=== PATIENT | male | born 1975 | race Caucasian/White ===

== ENCOUNTER → 2018-11-12 | Outpatient (CLI) | payer OTHER ==
--- NOTE | 2018-11-12 17:49 | KCIC ---
MRI of the thoracic spine without contrast November 12, 2018 CLINICAL HISTORY: Mid back pain which radiates to the left side. TECHNIQUE: Unenhanced T1-weighted, T2-weighted and inversion recovery sagittal and T1-weighted and T2-weighted axial images of the thoracic spine were obtained. FINDINGS: Very mild S-shaped curvature of the thoracolumbar spine is seen. Degenerative signal changes are seen involving all of the disks of the thoracic spine. Degenerative signal changes are seen within the marrow surrounding these discs. No area of abnormal signal intensity is seen involving the thoracic spinal cord. Degenerative changes are seen involving the thoracic disc spaces consisting of minimal to mild generalized disc bulges and degenerative changes involving the facet joints. Right paracentral focal disc protrusions are seen at the T3-4, T4-5, and T5-6 levels. These measure 3 mm in AP diameter. They results in mild right lateral central spinal canal stenosis without evidence of cord impingement. At the T6-7 disc space a left paracentral focal disc herniation is seen which measures 6 mm in AP diameter. This results in moderate to severe left lateral central spinal canal stenosis without evidence of cord impingement. A left paracentral focal disc protrusion is seen at T7-8 which measures 4 mm in AP diameter. This results in mild left lateral central spinal canal stenosis. A left paracentral focal disc protrusion is seen at T9-T10. This measures 5 mm in AP diameter. This results in mild to moderate left lateral central spinal canal stenosis. No neural foraminal stenosis is seen. IMPRESSION: Degenerative changes are seen throughout the thoracic spine. These findings result in mild right lateral central spinal canal stenosis at T3-4, T4-5 and T5-6. Moderate to severe left lateral central spinal canal stenosis is seen at T6-7. Mild left lateral central spinal canal stenosis is seen at T7-8. Mild to moderate left lateral central spinal canal stenosis is seen at T9-T10. There is no evidence of cord impingement. No neural foraminal stenosis is seen. Electronically signed by: Jamison Medrano MD (11/12/2018 5:46 PM) [facility]
== END | disposition home or self-care (01) ==
LOC: KCIC MRI 13:18
PROVIDERS: ATTEND Physical Medicine & Rehabilitation
DX: M47.24 Other spondylosis with radiculopathy, thoracic region (principal); M48.04 Spinal stenosis, thoracic region; M51.24 Other intervertebral disc displacement, thoracic region
CPT/HCPCS: 72146

== ENCOUNTER → 2018-12-14 | Outpatient (CLI) | payer OTHER ==
[~2018-12-14] MED LIST: HYDR-2765 PO
--- NOTE | 2018-12-15 05:07 | PAIN ---
DATE OF SERVICE: 12/14/2018 INITIAL CONSULTATION FOR PAIN CLINIC CHIEF COMPLAINT: Mid back pain and radiation to the left mid upper back and left flank. HISTORY OF PRESENT ILLNESS: The patient is a 43-year-old male who presents with history of pain for about 3 years, increasing in the mid back, upper back radiating to the left side, left lateral flank and into the lateral aspect of the rib cage and into the anterior aspect of the rib cage as well just below the pectoral region on the left side. The patient reports some on the right side as well, but mostly on the left is getting worse over the past 6 months or so. The patient has had physical therapy as well as doing chiropractic treatment currently and doing exercises as well with improvement in pain with only mildly so. The patient is seeing his PMR physician who is recommending further treatment and consideration of interventional modalities as well as the physical therapy currently. The patient reports the pain is worse with walking, standing, change in positions, awakens him from sleep 2-3 times at night, does not affect his bowel or bladder control, but can affect his ability to walk. The patient reports he is taking hydrocodone as well as muscle relaxants. Hydrocodone does decrease the pain, but only temporarily. The muscle relaxant is not helping decrease the pain at all. The patient reports no loss of motor function. The mostly left-sided pain as a tingling described as sharp, stabbing, throbbing, tingling, numbness, changes during the day, worse with activity, worse with rotational motion of the lower thoracic spine as well as lifting or bending forward. The patient reports it is burning and aching. The patient reports his disability rating from 0-10, 10 being the worst, is an 8 with family and home responsibilities, recreation, social activity, sexual behavior and self-care, 10 with occupational activities and 10 with life support activities. PAST MEDICAL HISTORY: Significant for type 2 diabetes, shortness of breath, difficulty urinating, arthritis. No previous surgeries. Cigarette smoking, 1 pack a day for 27 years. CURRENT MEDICATIONS: Include hydrocodone. ALLERGIES: The patient has no known drug allergies. FAMILY HISTORY: Significant for no major medical conditions or diseases that he is aware of. SOCIAL HISTORY: The patient smokes 1 pack a day, has it for the past 27 years. Drinks alcohol 3-4 drinks a week. Does not use any illegal, illicit or recreational drugs. 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 REVIEW OF SYSTEMS: The patient's review of systems is positive for those items mentioned in history of present illness. All systems reviewed and otherwise negative. It is complete, full and well documented on the patient's chart. PHYSICAL EXAMINATION: VITAL SIGNS: The patient's blood pressure is 147/71, pulse is 80, respirations 18, temperature is 98.5 degrees Fahrenheit. Height is 6 feet 2 inches, weight is 226 pounds. GENERAL: The patient is awake, alert, oriented, appropriate, very pleasant demeanor. HEENT: Head is normocephalic, atraumatic. Extraocular movements are intact and symmetrical. Oral cavity, mucous membranes moist and pink. Dentition is intact. NECK: Shows anterior throat supple without palpable lymphadenopathy noted. Swallow reflex symmetrical. CHEST: Shows normal on inspection. Breath sounds clear to auscultation bilaterally. HEART: Shows S1, S2 clear. No murmurs auscultated. ABDOMEN: Soft, nontender, nondistended. No palpable organomegaly is noted. No rebound or guarding demonstrated. BACK: Shows spine grossly in the midline. Normal appearing thoracic kyphosis and lumbar lordotic curvature as well as cervical lordotic curvature. Thoracic paraspinous muscle shows symmetrical on inspection with palpation shows some moderate tenderness diffusely in the middle and upper aspect of the thoracic spine, more tender on the left side than the right in the paraspinous musculature directly and actually some firm rope-like musculature on the left side, not the right. In the mid thoracic distribution, the patient has full rotational motion of the thoracic spine, both laterally as well as extension and flexion without significant increase in pain. EXTREMITIES: The patient's upper extremities showed deep tendon reflexes 2+ in the biceps, triceps tendons. Motor exam is strong with metal work duct installer strength rated at 5/5 as is bicep and tricep flexion and equal. Peripheral pulses are 2+ radial distribution. No peripheral edema is noted bilaterally. SKIN: Shows warm and dry, good turgor. No edema. No sores, rashes or bruising. IMPRESSION: 1. This is a 43-year-old male who presents with history of about 3 years pain, mid upper back radiating to the left lateral flank in a radicular fashion consistent with a thoracic radiculopathy. 2. MRI scan thoracic spine showing herniated disk at T6-7 with a left paracentral focal disk protrusion and herniation also focal disk protrusion at T7-8 resulting in mild left lateral central spinal canal stenosis as well. 3. Cigarette smoking. PLAN: Options were discussed with the patient including conservative medical managements, physical therapies and interventional techniques. He would like to pursue interventional techniques as he is already doing physical therapy and already doing exercises on his own and chiropractic treatment. We discussed a thoracic epidural steroid injection using description as well as anatomical models to describe the procedure. The patient will wait for preauthorization with his insurance provider and return for a thoracic epidural steroid injection at the T6-7 level for T6-7 left-sided radicular pain. The patient will continue with stretching and strengthening exercises. Also, try Medrol Dosepak. The patient was given instruction as well as side effects to be aware of with the medication. We will follow up in approximately 1 week. We will plan on thoracic epidural steroid injection at that time. MICHOACANO IBARRA MD DR: GAGE/steve JOB#: [id number] / [id number]
== END | disposition home or self-care (01) ==
LOC: PNCL 09:54
PROVIDERS: ATTEND Anesthesiology
DX: M54.5 Low back pain (principal); M40.294 Other kyphosis, thoracic region; M40.46 Postural lordosis, lumbar region; E11.9 Type 2 diabetes mellitus without complications; M19.90 Unspecified osteoarthritis, unspecified site; F17.210 Nicotine dependence, cigarettes, uncomplicated; Z79.891 Long term (current) use of opiate analgesic; Z72.89 Other problems related to lifestyle
CPT/HCPCS: G0463

== ENCOUNTER → 2018-12-28 | Outpatient (CLI) | payer OTHER ==
[~2018-12-28] MED LIST changes: +IOHEXOL 180 MG/ML 10 ML VIAL. ONE; +methylPREDNISolone ACETATE 40 MG/ML VIAL. ONE; +methylPREDNISolone ACETATE 80 MG/ML VIAL. ONE
--- NOTE | 2018-12-28 08:23 | PAIN ---
DATE OF SERVICE: 12/28/2018 PROGRESS NOTE FOR PAIN CLINIC DIAGNOSES: Thoracic radiculopathy with thoracic degenerative disk disease, thoracic herniated disk. HISTORY OF PRESENT ILLNESS: The patient is a 43-year-old male who returns for followup status post initial evaluation and preauthorization for thoracic epidural steroid injection the patient has obtained and now would like to proceed, still pain in the mid upper back with radiation to the left side greater than right, unchanged since previous. The patient reports the pain is a 9 on a scale of 10 at its worst over the past week, 6 on average, 2 at its least and is a 6 today. The patient reports it is aching, sharp, tight, shooting, cramping, stabbing, tingling, burning, on and off in intensity, worse with activity. The patient reports better at night, but does awaken him from sleep about every 5-6 hours. The patient reports no new motor or sensory deficits, no new bowel or bladder incontinence or other complaints. PHYSICAL EXAMINATION: VITAL SIGNS: The patient's blood pressure 137/85, pulse 67, respirations 18, temperature 98.1 degrees Fahrenheit, height is 6 feet 2 inches, weight is 225 pounds. GENERAL: The patient is awake, alert, oriented, appropriate, very pleasant demeanor. HEENT: Shows normocephalic, atraumatic. Extraocular movements are intact and symmetrical. Oral cavity: Mucous membranes moist and pink. Dentition is intact. NECK: Shows anterior throat supple without palpable lymphadenopathy noted. Swallow reflex symmetrical. CHEST: Shows normal on inspection. Breath sounds are clear to auscultation bilaterally. HEART: Shows S1, S2 clear. No murmurs auscultated. ABDOMEN: Soft, nontender, nondistended. No palpable organomegaly is noted. No rebound or guarding demonstrated. BACK: Shows spine grossly in the midline. Normal-appearing thoracic kyphosis and lumbar lordotic curvature. Thoracic paraspinous muscle shows symmetrical on inspection, with palpation shows some moderate tenderness diffusely in the mid upper distribution of paraspinous muscles, but reasonably symmetrical without atrophy, hypertrophy without radiation. The patient has good rotation motion of the thoracic spine, both extension, flexion, lateral rotation, right and left. The patient's upper extremities show deep tendon reflexes 2+ in the biceps, triceps tendons. Motor exam is strong with 5/5 teachers' assistant strength, bicep and tricep flexion. Peripheral pulses are 2+ radial distribution. No peripheral edema is noted bilaterally. Options were discussed with the patient. The patient's old chart was reviewed as his current medication regimen updated. Current review of systems updated today as well. We will proceed with a thoracic epidural steroid injection today with fluoroscopic guidance. Risks were again discussed including, but not limited to bleeding, infection, possibility of epidural hematoma, subsequent neurological compromise, dural puncture, headaches, spinal cord and/or nerve damage, side effects of steroid medication and poor results regarding pain control. The patient understands and wished to proceed. The patient will return to clinic in approximately 2 weeks for followup. She was counseled as to return appointment, activity level and side effects to be aware of. DIAGNOSES: Thoracic radiculopathy with thoracic degenerative disk disease, thoracic herniated disk. PROCEDURE: Thoracic epidural steroid injection, translaminar approach T7-8 level using C-arm fluoroscopic guidance under sterile prep and drape using local anesthetic. MEDICATION INJECTED: A total of 120 mg Depo-Medrol plus 10 mL of preservative-free normal saline and 2 mL of contrast. CONDITION AT DISCHARGE: Stable. The patient tolerated procedure well, had no complications. MICHOACANO IBARRA MD DR: GAGE/steve JOB#: [id number] / [id number]
== END ==
LOC: PNCL 07:20
PROVIDERS: ATTEND Anesthesiology
DX: M51.14 Intervertebral disc disorders with radiculopathy, thoracic region (principal)
CPT/HCPCS: 62321; J1030; J1040; Q9965

== ENCOUNTER → 2019-01-11 | Outpatient (CLI) | payer OTHER ==
[~2019-01-11] MED LIST changes: -IOHEXOL 180 MG/ML 10 ML VIAL. ONE; -methylPREDNISolone ACETATE 40 MG/ML VIAL. ONE; -methylPREDNISolone ACETATE 80 MG/ML VIAL. ONE
--- NOTE | 2019-01-11 08:39 | PAIN ---
DATE OF SERVICE: 01/11/2019 PROGRESS NOTE FOR PAIN CLINIC DIAGNOSES: Thoracic radiculopathy with thoracic degenerative disk disease, thoracic herniated disk. HISTORY OF PRESENT ILLNESS: The patient is a 43-year-old male who returns for followup status post thoracic epidural steroid injection x 1. The patient reports about 50% better after the injection and he is still holding on with some decreased pain. The patient reports an increase in his activity with greater ease and comfort, sleeping better at night, walking greater distances. The pain is beginning to return now he feels in the mid back, more on the left side, but slightly on the right as well, more on the left traveling laterally into the lateral thorax and into the anterior aspect of the rib cage as well with increased activity. The patient reports the pain is a 9 on a scale of 10 at its worst over the past week, 7 on average, 4 at its least and is a 7 today. The patient reports it is aching, sharp, tight, shooting, tingling, burning, cramping and stabbing at times, on and off in intensity, worse with exertion, worse with reaching with his left arm or weightbearing on with left upper extremity. The patient reports it awakens him from sleep about every 7-8 hours intermittently, but not every night. The patient reports it is better with applying heat. He is still doing stretching and doing strengthening exercises and physical therapy is completed and keeping heat application during the stretching as well. The patient reports no new motor or sensory deficits or other complaints. PHYSICAL EXAMINATION: VITAL SIGNS: The patient's blood pressure 121/76, pulse 69, respirations 16, temperature 98.3 degrees Fahrenheit, weight is 220 pounds. GENERAL: The patient is awake, alert, oriented, appropriate, very pleasant demeanor. HEENT: Shows normocephalic, atraumatic. Extraocular movements are intact and symmetrical. Oral cavity: Mucous membranes moist and pink. Dentition is intact. NECK: Shows anterior throat supple without palpable lymphadenopathy noted. Swallow reflex symmetrical. CHEST: Shows normal on inspection. Breath sounds are clear bilaterally. HEART: Shows S1, S2 clear. No murmurs auscultated. ABDOMEN: Soft, nontender, nondistended. No palpable organomegaly is noted. No rebound or guarding demonstrated. BACK: Shows spine grossly in the midline, slight exaggerated thoracic kyphosis, normal lumbar paraspinous musculature, thoracic paraspinous musculature shows symmetrical on inspection, with palpation shows some moderate tenderness in left of midline in the mid upper distribution of the thoracic paraspinous muscles, which is moderately tender, but without specific trigger points and without radiation, mildly tender on the right side in the same distribution. The patient has good rotational motion of the thoracic spine, both laterally as well as extension and flexion without increase in pain. EXTREMITIES: The patient's upper extremities show deep tendon reflexes 2+ in the biceps and triceps tendons. Motor exam is strong with 5/5 passenger booking clerk strength, bicep and triceps flexion. Peripheral pulses are 2+ radial distribution. No peripheral edema is noted bilaterally. Options were discussed with the patient. The patient's old chart was reviewed as his current medication regimen updated. Current review of systems updated today as well. We will preauthorize the patient for a second thoracic epidural steroid injection, he still has a T7-T8 radiculopathy on the left, better after the first injection, but still significant. The patient will continue with stretching and strengthening exercises, heat application as well to the mid upper back and return for a T7-T8 level of thoracic epidural steroid injection after insurance approval. MICHOACANO IBARRA MD DR: GAGE/steve JOB#: [id number] / [id number]
== END | disposition home or self-care (01) ==
LOC: PNCL 07:53
PROVIDERS: ATTEND Anesthesiology
DX: M51.14 Intervertebral disc disorders with radiculopathy, thoracic region (principal)
CPT/HCPCS: G0463

== ENCOUNTER → 2019-01-25 | Outpatient (CLI) | payer OTHER ==
[~2019-01-25] MED LIST changes: +IOHEXOL 180 MG/ML 10 ML VIAL. ONE; +methylPREDNISolone ACETATE 40 MG/ML VIAL. ONE; +methylPREDNISolone ACETATE 80 MG/ML VIAL. ONE
--- NOTE | 2019-01-25 09:58 | PAIN ---
DATE OF SERVICE: 01/25/2019 PROGRESS NOTE FOR PAIN CLINIC DIAGNOSES: Thoracic radiculopathy with thoracic degenerative disk disease, thoracic herniated disk. HISTORY OF PRESENT ILLNESS: The patient is a 43-year-old male who returns for followup status post thoracic epidural steroid injection x 1. The patient reports about 50% improvement after the injection, but the pain is returning now. He has recently returned from a trip to [place]. He was doing lot of walking, this has got some of the pain increased as well in his mid back as well as in his low back. The patient reports his pain is a 10 on a scale of 10 at its worst over the past week, 8 on average, 7 at its least and is a 7 today. The patient reports it is aching, sharp, dull, tight, shooting, stabbing, cramping, burning, tingling, radiating, severe, constant, unbearable at times in the mid upper back, more to the left side. The patient reports no new motor or sensory deficits. No new bowel or bladder incontinence. PHYSICAL EXAMINATION: VITAL SIGNS: The patient's blood pressure 124/85, pulse 70, respirations 16, temperature 98.0 degrees Fahrenheit, height is 6 feet 2 inches, weight is 215 pounds. GENERAL: The patient is awake, alert, oriented, appropriate, very pleasant demeanor. HEENT: Shows normocephalic, atraumatic. Extraocular movements are intact and symmetrical. Oral cavity: Mucous membranes moist and pink. Dentition is intact. NECK: Shows anterior throat supple without palpable lymphadenopathy noted. Swallow reflex symmetrical. CHEST: Shows normal on inspection. Breath sounds clear to auscultation bilaterally. HEART: Shows S1, S2 clear. No murmurs auscultated. ABDOMEN: Soft, nontender, nondistended. BACK: Shows spine grossly in the midline, normal-appearing cervical lordotic curvature, thoracic kyphotic curvature and lumbar lordotic curvature. Thoracic paraspinous muscle shows symmetrical, but with some minor hypertrophy on the left mid thoracic paraspinous musculature compared to the right. No tenderness over the spinous processes. The patient has good rotational motion of the thoracic spine, both laterally as well as extension and flexion without significant difficulty. EXTREMITIES: The patient's upper extremities show deep tendon reflexes 2+ in the patellar, 1+ tendo-calcaneus tendons. Motor exam is strong with 5/5 pipeline engineer strength, bicep and tricep flexion and symmetrical. Peripheral pulses are 2+ radial distribution. No peripheral edema is noted bilaterally. Options were discussed with the patient. The patient's old chart was reviewed as his current medication regimen updated. Current review of systems updated today as well and we will proceed with a second in the series of thoracic epidural steroid injection today with fluoroscopic guidance. Risks were again discussed including, but not limited to bleeding, infection, possibility of epidural hematoma, subsequent neurological compromise, dural puncture, headaches, spinal cord and/or nerve damage, side effects of steroid medication and poor results regarding pain control. The patient understands and wished to proceed. The patient will return to clinic in approximately 2 weeks for followup. He was counseled on return appointment, activity level and side effects to be aware of. DIAGNOSES: Thoracic radiculopathy with thoracic degenerative disk disease, thoracic herniated disk. PROCEDURE: Thoracic epidural steroid injection, translaminar approach at T7-T8 level using C-arm fluoroscopic guidance under sterile prep and drape using local anesthetic. MEDICATION INJECTED: Total of 120 mg Depo-Medrol plus 10 mL of preservative-free normal saline and 2 mL of contrast. CONDITION AT DISCHARGE: Stable. The patient tolerated procedure well, had no complications. MICHOACANO IBARRA MD DR: GAGE/steve JOB#: [id number] / [id number]
== END ==
LOC: PNCL 07:39
PROVIDERS: ATTEND Anesthesiology
DX: M51.14 Intervertebral disc disorders with radiculopathy, thoracic region (principal)
CPT/HCPCS: 62321; J1030; J1040; Q9965

== ENCOUNTER → 2019-02-15 | Outpatient (CLI) | payer OTHER ==
[~2019-02-15] MED LIST changes: -IOHEXOL 180 MG/ML 10 ML VIAL. ONE; -methylPREDNISolone ACETATE 40 MG/ML VIAL. ONE; -methylPREDNISolone ACETATE 80 MG/ML VIAL. ONE
--- NOTE | 2019-02-15 08:23 | PAIN ---
DATE OF SERVICE: 02/15/2019 PROGRESS NOTE FOR PAIN CLINIC DIAGNOSES: Thoracic radiculopathy with thoracic degenerative disk disease, thoracic herniated disk. HISTORY OF PRESENT ILLNESS: The patient is a 43-year-old male who returns for followup status post thoracic epidural steroid injections x 2. The patient reports decrease in the pain by about 50%, but only lasting about 2 days and the pain returns right to its baseline with pain in the mid upper back radiating to the left side, left flank, left lateral ribs, some on the right, but mostly on the left side. The patient reports it is tingling, burning, cramping, stabbing, aching, sharp, dull, tight, alternating and shooting in the left side, radiating, becoming more constant with activity, worse with standing, walking, changing positions, especially bending or extending into the thoracic spine. The patient rates his pain as a 9 on a scale of 10 at its worst over the past week, 6 on average, 4 at its least and is a 9 today. The patient reports it awakens him from sleep about every 4-5 hours, again worse with activity, better with sitting or resting, but again waking him from sleep. The patient reports no new motor or sensory deficits, no new changes. PHYSICAL EXAMINATION: VITAL SIGNS: The patient's blood pressure 118/82, pulse 77, respirations 16, temperature 97.5 degrees Fahrenheit, height is 6 feet 2 inches, weight is 224 pounds. GENERAL: The patient is awake, alert, oriented, appropriate, very pleasant demeanor. HEENT: Shows normocephalic, atraumatic. Extraocular movements are intact and symmetrical. Oral cavity shows mucous membranes moist and pink. Dentition is intact. NECK: Shows anterior throat supple without palpable lymphadenopathy noted. Swallow reflex is symmetrical. CHEST: Shows normal on inspection. Breath sounds clear to auscultation bilaterally. HEART: Shows S1, S2 clear. No murmurs auscultated. ABDOMEN: Soft, nontender, nondistended. No palpable organomegaly is noted. No rebound or guarding demonstrated. BACK: Shows spine grossly in the midline. Normal appearing thoracic kyphosis and cervical lordotic curvature. Thoracic paraspinous muscle shows symmetrical on inspection, with palpation shows some moderate tenderness, more on the left than the right, but without specific trigger points and without radiation of the pain, slightly more tender on the left than the right, but appears roughly symmetrical. The patient has good rotational motion both laterally as well as extension and flexion with some moderate tenderness with extension, but not with forward flexion, right and left lateral rotation is performed without significant increase in pain as well. EXTREMITIES: The patient's lower extremities show deep tendon reflexes at 1+ in the patellar and tendo calcaneus tendons. Motor exam is strong with 5/5 dorsiflexion and extension. Upper extremities show deep tendon reflexes 2+ in the biceps and triceps tendons. 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 Peripheral pulses are 2+ radial, 1+ posterior tibial. No peripheral edema is noted bilaterally. Options were discussed with the patient. The patient's old chart was reviewed as was his current medication regimen updated. Current review of systems updated today as well and we will hold on any further injections at this time as the patient is only getting about 2 days of decreased pain with significant left radicular symptoms at about the T6-T7 level, which correlates with his MRI scan showing disk protrusion with severe stenosis on the left at T6-T7. The patient would like to discuss this with a neurosurgeon. We will make those arrangements and hold on any further injections at this time. The patient will continue to do stretching and strengthening exercises as well as massage and heat treatment to the mid upper back as he has been doing. We will make arrangements for neurosurgical evaluation. MICHOACANO IBARRA MD DR: GAGE/steve JOB#: [id number] / [id number]
== END | disposition home or self-care (01) ==
LOC: PNCL 07:31
PROVIDERS: ATTEND Anesthesiology
DX: M51.14 Intervertebral disc disorders with radiculopathy, thoracic region (principal)
CPT/HCPCS: G0463

== ENCOUNTER → 2019-10-14 | Outpatient (CLI) | payer OTHER ==
--- NOTE | 2019-10-14 16:51 | KCIC ---
3 views of the sinuses for recurrent maxillary sinusitis. FINDINGS: There is air-fluid level in the left maxillary sinus consistent with acute sinusitis. Right maxillary sinus is clear as are the frontal sinuses. No significant osseous abnormalities. IMPRESSION: 1. Fluid level in left maxillary sinus consistent with acute sinusitis. Electronically signed by: Matthieu Ramirez MD (10/14/2019 4:48 PM) [id number]
== END | disposition home or self-care (01) ==
LOC: KCIC 13:08
PROVIDERS: ATTEND Family Medicine
DX: J01.01 Acute recurrent maxillary sinusitis (principal)
CPT/HCPCS: 70220

== ENCOUNTER → 2020-04-28 | Outpatient (CLI) | payer OTHER ==
--- NOTE | 2020-04-28 16:22 | KCIC ---
EXAM: XR HIP (WITH OR WITHOUT PELVIS) 1 VIEW, XR SACRUM AND COCCYX 2+VIEWS 04/28/2020 10:38 AM CLINICAL INDICATION: Bilateral hip pain for one year, worsening, sacral/coccygeal pain for one month , worsening. COMPARISON: None FINDINGS: Hips: No acute fracture. Alignment is normal. The hip joint spaces are maintained. Pubic symphysis, s acroiliac joints, and lower lumbar spine are normal. Sacrum and coccyx: No acute fracture. Sacroiliac joints are normal. Coccyx is normal. IMPRESSION: Normal radiographs of the hips, sacrum, and coccyx. Electronically signed by: Elenita Grossman MD (04/28/2020 4:19 PM) [id number]
== END ==
LOC: KCIC 10:35
PROVIDERS: ATTEND Family Medicine
DX: S39.92XA Unspecified injury of lower back, initial encounter (principal); M25.551 Pain in right hip; M25.552 Pain in left hip; X58.XXXA Exposure to other specified factors, initial encounter; Y93.89 Activity, other specified; Y92.89 Other specified places as the place of occurrence of the external cause; Y99.8 Other external cause status
CPT/HCPCS: 72220; 73521

== ENCOUNTER → 2020-07-02 | Outpatient (CLI) | payer OTHER ==
--- NOTE | 2020-07-02 16:19 | KCIC ---
MRI of the cervical spine without contrast 07/02/2020 CLINICAL HISTORY: Chronic neck pain for 15 years with bilateral arm pain and numbness. Right arm weak ness. TECHNIQUE: Unenhanced T1-weighted, T2-weighted and inversion recovery sagittal and gradient echo and T2-weighted axial images of the cervical spine were obtained. FINDINGS: Mild lateral curvature of the cervical spine is seen convex to the left. There is straighte pau of the normal cervical lordosis. Incomplete segmentation of the C3 and C4 vertebrae is seen. Deg enerative signal changes are seen involving the remaining discs of the cervical spine. Degenerative s ignal changes are seen within the marrow surrounding these discs. Slight prominence of the central sp inal canal is seen involving the cervical spinal cord at the C7 level. No additional area of definite abnormal signal intensity is seen involving the cervical spinal cord. At the C2-3 disc space there is a minimal generalized disc bulge. Degenerative changes are seen invol ving the uncovertebral and facet joints bilaterally. These findings do not result in significant cent ral spinal canal or neural foraminal stenosis. At the C3-4 level degenerative changes are seen involving the uncovertebral and facet joints bilatera lly. These findings do not result in significant central spinal canal or neural foraminal stenosis. At the C4-5 disc space there is a moderate generalized disc bulge. Degenerative changes are seen invo lving the uncovertebral and facet joints bilaterally. These findings efface the anterior and posterio r CSF resulting in moderate central spinal canal stenosis with mild cord impingement. No neural cecilia inal stenosis is seen. At the C5-6 disc space there is a mild generalized disc bulge. Degenerative changes are seen involvin g the uncovertebral and facet joints, left greater than right. These findings do not result in signif icant central spinal canal or definite neural foraminal stenosis. At the C6-7 disc space there is a mild to moderate generalized disc bulge. This is eccentric to the l eft. Degenerative changes are seen involving the uncovertebral and facet joints, left greater than ri ght. These findings when combined result in mild left-sided central spinal canal stenosis without martin dence of cord impingement. Moderate to severe left neural foraminal stenosis is seen. Mild right neur al foraminal stenosis is noted. At the C7-T1 disc space there is a minimal generalized disc bulge. Degenerative changes are seen invo lving the facet joints bilaterally. These findings do not result in significant central spinal canal or neural foraminal stenosis. IMPRESSION: Degenerative changes are seen throughout the cervical spine. These findings result in mod erate central spinal canal stenosis with mild cord impingement at C4-5 and mild left-sided central sp inal canal stenosis without evidence of cord impingement at C6-7. Moderate to severe left neural fora yaneli stenosis is seen at C6-7. Mild right neural foraminal stenosis is seen at C6-7. Electronically signed by: Jamison Medrano MD (07/02/2020 4:17 PM) [id number]
== END ==
LOC: KCIC MRI 13:40
PROVIDERS: ATTEND Physical Medicine & Rehabilitation
DX: M47.22 Other spondylosis with radiculopathy, cervical region (principal); M48.02 Spinal stenosis, cervical region
CPT/HCPCS: 72141